=== PATIENT | male | born 1960 | race Caucasian/White ===

== ENCOUNTER 2023-08-30 07:37 | Day surgery (SDC) | payer OTHER ==
[2023-08-29 10:59] VITALS: BMI 31.1
[2023-08-30] MEDS ORDERED: fentaNYL 50 mcg/mL 1 mL Vial ONE (10:09)
[2023-08-30] MEDS ORDERED: Lidocaine 1% PF 5 ML VIAL ONE (10:15)
[2023-08-30] MEDS ORDERED: PROPOFOL 200 MG/20 ML VIAL ONE (10:15)
== END 2023-08-30 12:10 | disposition home or self-care (01) ==
LOC: SDC 07:37
PROVIDERS: ATTEND Internal Medicine Gastroenterology
PROC: 0DJD8ZZ Inspection of Lower Intestinal Tract, Via Natural or Artificial Opening Endoscopic (ICD-10-PCS; principal; 2023-08-30)
PROC: 0DB68ZX Excision of Stomach, Via Natural or Artificial Opening Endoscopic, Diagnostic (ICD-10-PCS; principal; 2023-08-30)
DX: Z12.11 Encounter for screening for malignant neoplasm of colon (principal); D12.0 Benign neoplasm of cecum; K57.30 Diverticulosis of large intestine without perforation or abscess without bleeding; K64.9 Unspecified hemorrhoids; K22.70 Barrett's esophagus without dysplasia; K31.7 Polyp of stomach and duodenum; K21.00 Gastro-esophageal reflux disease with esophagitis, without bleeding; C91.10 Chronic lymphocytic leukemia of B-cell type not having achieved remission; Z90.89 Acquired absence of other organs; Z98.890 Other specified postprocedural states; Z79.899 Other long term (current) drug therapy
CPT/HCPCS: 88305; J2704; J3010